=== PATIENT | female | born 1990 | race Caucasian/White ===

== ENCOUNTER → 2017-07-04 23:04 | Observation (INO) ==
[2017-07-04 18:42] LABS: Bilirubin,Urine Negative (Negative); Blood,Urine Small (Negative); Clarity,Urine Cloudy (Clear); Color,Urine Yellow (Yellow); Glucose,Urine (UA) Normal (Normal); Ketones,Urine Negative (Negative); Leukocyte Esterase,Urine Negative (Negative); Nitrite,Urine Negative (Negative); Protein,Urine Negative (Neg-Trace); Specific Gravity,Urine 1.022 (1.010-1.025); Urobilinogen,Urine Normal (Normal)
[2017-07-04 18:44] LABS: Bacteria,Urine None Seen per hpf (None-Few); Hyaline Casts,Urine None Seen per lpf (None-Few); RBC,Urine 0-3 per hpf (0-3); Squamous Epithelial Cell,Urine Many per lpf (None-Few); WBC,Urine 0-3 per hpf (0-3)
[2017-07-04 19:08] LABS: Amphetamine Screen,Urine Negative ng/mL (Cutoff=1000); Barbiturate Screen,Urine Negative ng/mL (Cutoff=200); Benzodiazepines Screen,Urine Negative ng/mL (Cutoff=200); Cannabinoid Screen,Urine Negative ng/mL (Cutoff = 50); Cocaine Screen,Urine Negative ng/mL (Cutoff= 300); Opiate Screen,Urine Negative ng/mL (Cutoff=300); Phencyclidine Screen,Urine Negative ng/mL (Cutoff=25)
[2017-07-04 19:18] LABS: Basophils % 0.2 %; Eosinophils # 0.1 K/mcL (0.0-0.6); Eosinophils % 0.8 %; Hemoglobin 12.5 g/dL (11.5-15.4); Lymphocytes # 3.5 K/mcL (0.6-4.6); Lymphocytes % 21.4 %; Mean Corpuscular HGB Conc 35.7 g/dL (31.6-35.5); Mean Corpuscular Hemoglobin 30.3 pg (28.0-33.3); Mean Corpuscular Volume 84.7 fL (83.0-100.0); Mean Platelet Volume 10.5 fL (9.4-12.4); Monocytes # 1.1 K/mcL (0.0-1.3); Monocytes % 6.5 %; Neutrophils # 11.6 K/mcL (1.6-8.9); Platelet Count 224 K/mcL (140-400); Red Blood Count 4.13 M/mcL (3.82-4.97); Segmented Neutrophils % 70.1 %
--- NOTE | 2017-07-04 22:44 | Discharge Summary ---
Date of Encounter: 07/04/17 Time of Encounter: 22:44 - Discharge Diagnosis (1) 20 weeks gestation of Priority: Primary Status: Acute Comments: admitted for observation FHR 130 bpm per doppler (2) Lower abdominal pain Priority: Secondary Status: Acute Comments: negative UA no contractions (3) Low back pain Priority: Secondary Status: Acute Comments: bilateral lower back pain renal ultrasound negative for stones Mild to moderate hydronephrosis noted on right side patient given [place] 5/325mg x1 for pain Qualifiers: Chronicity: acute Back pain laterality: bilateral Sciatica presence: without sciatica Qualified Code(s): M54.5 - Low back pain - Discharge Medications Home Medications: Vit/Iron Fumarate/FA [ Tablet] 1 each PO DAILY #30 tablet 03/13 [Rx] FLUoxetine HCl [PROzac] 20 mg PO DAILY 07/04/17 [History] Terconazole [Terazol 3] 1 appl VG DAILY 07/04/17 [History] Allergies/Adverse Reactions: 3 Allergy/AdvReac Type Severity Reaction Status Date / Time nitrofurantoin Allergy Rash Verified 07/04/17 18:16 [From Macrobid] Data Procedures and tests throughout hospitalization: Laboratory Tests 07/04/17 07/04/17 07/04/17 18:27 18:27 18:58 WBC 16.5 H RBC 4.13 Hgb 12.5 Hct 35.0 L MCV 84.7 MCH 30.3 MCHC 35.7 H RDW 13.0 Plt Count 224 MPV 10.5 Immature Gran % 1.0 Seg Neutrophils % 70.1 Lymphocytes % 21.4 Monocytes % 6.5 Eosinophils % 0.8 Basophils % 0.2 Neutrophils # 11.6 H Lymphocytes # 3.5 Monocytes # 1.1 Eosinophils # 0.1 Basophils # 0.0 Urine Color Yellow Urine Clarity Cloudy A Urine pH 6.0 Ur Specific [place] 1.022 Urine Protein Negative Urine Glucose (UA) Normal Urine Ketones Negative Urine Blood Small H Urine Nitrite Negative Urine Bilirubin Negative Urine Urobilinogen Normal Ur Leukocyte Esterase Negative Urine Microscopic RBC 0-3 Urine Microscopic WBC 0-3 Ur Squamous Epith Cells Many H Urine Bacteria None Seen Hyaline Casts None Seen Ur Culture Indicated? NO Urine Opiates Screen Negative Ur Barbiturates Screen Negative Ur Phencyclidine Scrn Negative Ur Amphetamines Screen Negative U Benzodiazepines Scrn Negative Urine Cocaine Screen Negative U Marijuana (THC) Screen Negative Labs on day of discharge: Labs from last 24 hours 07/04/17 07/04/17 07/04/17 18:58 18:27 18:27 WBC 16.5 H RBC 4.13 Hgb 12.5 Hct 35.0 L MCV 84.7 MCH 30.3 MCHC 35.7 H RDW 13.0 Plt Count 224 MPV 10.5 Immature Gran % 1.0 Seg Neutrophils % 70.1 Lymphocytes % 21.4 Monocytes % 6.5 Eosinophils % 0.8 Basophils % 0.2 Neutrophils # 11.6 H Lymphocytes # 3.5 Monocytes # 1.1 Eosinophils # 0.1 Basophils # 0.0 Urine Color Yellow Urine Clarity Cloudy A Urine pH 6.0 Ur Specific [place] 1.022 Urine Protein Negative Urine Glucose (UA) Normal Urine Ketones Negative Urine Blood Small H Urine Nitrite Negative Urine Bilirubin Negative Urine Urobilinogen Normal Ur Leukocyte Esterase Negative Urine Microscopic RBC 0-3 Urine Microscopic WBC 0-3 Ur Squamous Epith Cells Many H Urine Bacteria None Seen Hyaline Casts None Seen Ur Culture Indicated? NO Urine Opiates Screen Negative Ur Barbiturates Screen Negative Ur Phencyclidine Scrn Negative Ur Amphetamines Screen Negative U Benzodiazepines Scrn Negative Urine Cocaine Screen Negative U Marijuana (THC) Screen Negative - Impressions ITS Impressions Retroperitoneum Ultrasound 07/04/17 19:30 IMPRESSION: Mild to moderate right hydronephrosis. No shadowing renal pelvic stones. 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 Patient reports +FM, denies contractions, LOF or VB. Time Attestation: Total time spent providing and/or coordinating discharge services: Time Spent: Less than 30 minutes Exam - Constitutional General appearance IM: A&O X 3, pleasant, answers questions appropriately - Respiratory Respiratory exam: Present: CTAB - Cardiovascular Cardiovascular exam IM: Present: RRR, +S1, +S2 - Additional comments: tenderness over bladder - Other Additional findings: bilateral low back tenderness.
[~2017-07-04 23:04] MED LIST: *HR* HYDROcodone/Acet 5/325 mg TABLET PO ONE; Ringers Solution, Lactated 1,000 ML IVC SCH
== END | disposition home or self-care (01) ==
LOC: 1NENULAB
PROVIDERS: ADMIT Obstetrics & Gynecology; ATTEND Obstetrics & Gynecology

== ENCOUNTER 2017-11-09 06:00 | Inpatient (IN) ==
[2017-11-09] MEDS ORDERED: Famotidine 20 MG/2 ML VIAL IVP PRN (06:50)
[2017-11-09] MEDS ORDERED: Naloxone 0.4 MG/ML INJ IVP PRN (06:50)
[2017-11-09] MEDS ORDERED: Ondansetron 4 MG/2 ML VIAL IVP PRN (06:50)
[2017-11-09] MEDS ORDERED: Metoclopramide 10 MG/2 ML VIAL IVP PRN (06:50)
[2017-11-09] MEDS ORDERED: Ringers Solution, Lactated 1,000 ML IVC SCH (07:00)
[2017-11-09 07:49] LABS: Amphetamine Screen,Urine Negative ng/mL (Cutoff=1000); Barbiturate Screen,Urine Negative ng/mL (Cutoff=200); Benzodiazepines Screen,Urine Negative ng/mL (Cutoff=200); Cannabinoid Screen,Urine Negative ng/mL (Cutoff = 50); Cocaine Screen,Urine Negative ng/mL (Cutoff= 300); Opiate Screen,Urine Negative ng/mL (Cutoff=300); Phencyclidine Screen,Urine Negative ng/mL (Cutoff=25)
[2017-11-09 07:59] LABS: Hematocrit 33.5 % (35.3-44.9); Hemoglobin 11.6 g/dL (11.5-15.4); Lymphocytes % 19.1 %; Mean Corpuscular HGB Conc 34.6 g/dL (31.6-35.5); Mean Corpuscular Hemoglobin 27.7 pg (28.0-33.3); Mean Platelet Volume 9.9 fL (9.4-12.4); Platelet Count 260 K/mcL (140-400); Red Blood Count 4.19 M/mcL (3.82-4.97); Red Cell Distribution Width 13.5 % (11.5-14.5); Segmented Neutrophils % 71.8 %
[2017-11-09 08:00] LABS: Basophils % 0.3 %; Eosinophils # 0.1 K/mcL (0.0-0.6); Eosinophils % 0.6 %; Lymphocytes # 2.8 K/mcL (0.6-4.6); Monocytes # 1.1 K/mcL (0.0-1.3); Monocytes % 7.2 %; Neutrophils # 10.5 K/mcL (1.6-8.9)
[2017-11-09] MEDS ORDERED: miSOPROStol 100 MCG TABLET PO SCH (08:00)
[2017-11-09] MEDS ORDERED: miSOPROStol 25 MCG TABLET VG SCH (08:00)
--- NOTE | 2017-11-09 08:56 | OB/GYN History & Physical ---
Date of Encounter: 11/09/17 Time of Encounter: 08:53 Assessment and Plan (1) 39 weeks gestation of Current visit: Yes Status: Acute scheduled elective induction of labor for Term with favorable cervix per patient request. Cytotec 50mcg PO x1 Patient may have Nubain or epidural if desires for pain management. History of Present Illness Chief complaint: Patient scheduled for elective IOL HPI: Ms. Otoole is a 26 year old female @ 39w1d presents to labor and delivery for scheduled induction of labor for Term with favorable cervix. Patient reports +FM and contractions. Patient denies LOF or VB. Patient has a current minor score of 11. Blood type: A+ Rubella: Immune Hep B: Nonreactive GBS: Negative Past Med Surg Social Fam HX - Past Medical History Source: patient Medical history: no medical history Psychiatric history: depression - Past Surgical History Surgical History: cholecystectomy - Social History Smoking Status: Current some day smoker Smokeless Tobacco Status: No Alcohol use: none Drug use: none Occupational status: employed Current living situation: Home - Independent Activity Level: Independent ambulation Recent Out of Country Travel Within the Last 8 Weeks: No Exposure or Possible Exposure to Illness During Travel: No - Family History Mother Adopted: No Family Member Ethnicity: Non- Living Status: Still Living Hx Family Cardiac Disorders: No Hx Family Respiratory Disorders: No Hx Family Cancer: No Hx Family GI Disorders: No Hx Family Genitourinary Disorders: No Hx Family Endocrine Disorder: Yes Hx Family Musculoskeletal Disorders: No Hx Family Neuromuscular Disorders: No Hx Family Neurologic Disorders: No Hx Family HEENT Disorders: No Hx Family Autoimmune Disorders: No Hx Family Reproductive Disorders: No Hx Family Psychosocial Disorders: No Hx Family Medical Disorders: Yes (DVT) Obstetrical History - Pregnancies : 4 Para: 2 Term: 2 : 0 Ab's: 1 Livin Medications and Allergies 3 Allergy/AdvReac Type Severity Reaction Status Date / Time nitrofurantoin Allergy Hives Verified 09/23/17 14:58 [From Macrobid] Review of System OB - Constitutional Constitutional ROS IM: no fever(s), no headache(s) - Cardiovascular Cardiovascular: no chest pain, no edema, no lightheadedness, no palpitations, no syncope - Respiratory Respiratory: no cough - Gastrointestinal Gastrointestinal: no abdominal pain, no constipation, no cramping, no diarrhea, no heartburn, no vomiting - Genitourinary Genitourinary: no abnormal vaginal bleeding, no difficulty urinating, no dysuria , no flank pain, no urinary frequency, no urinary urgency, no vaginal discharge , no vaginal odor, no vaginal pruritis Exam - Constitutional Constitutional: well developed, well nourished, no acute distress, average body habitus - HEENT HEENT: Normocephaly, Mucus Membranes Moist - Neck Neck exam: full ROM, supple - Lungs Respiratory exam: CTAB - Cardiovascular Cardiovascular exam: RRR, +S1, +S2 - Abdomen Abdomen: Present: bowel sounds normal, gravid, non tender - Extremities Extremities exam: full ROM, normal capillary refill, normal inspection Deep Tendon Reflex Grade: 2+ Normal - Cervix Dilation: 3 (3.5 per RN) Effacement: 80 Station: -1 - Uterus Uterus exam: Present: normal size, normal contour - Anus/Rectum Anus/Rectum: Present: normal perianal skin (FHR 130 bpm moderate variability + 15x15 accels no decels noted. Contractions irregular) Results Result Diagrams: 11/09/17 07:23 Abnormal lab results WBC 14.7 K/mcL (4.3-11.1) H 11/09/17 07:23 Hct 33.5 % (35.3-44.9) L 11/09/17 07:23 MCV 80.0 fL (83.0-100.0) L 11/09/17 07:23 MCH 27.7 pg (28.0-33.3) L 11/09/17 07:23 Neutrophils # 10.5 K/mcL (1.6-8.9) H 11/09/17 07:23 All other labs normal. - VTE Reasons for not Prescribing Prophylaxis: Treatment not Indicated - Low risk for VTE
--- NOTE | 2017-11-09 10:14 | OB Labor Progress Note ---
Date of Encounter: 11/09/17 Time of Encounter: 10:12 Labor Progress Note - Subjective Subjective: Patient resting in bed. Discussed POC with patient. Patient denies any questions or concerns. - Cervix Cervix: 4/80/-1 - Heart Tones Heart Tones: 145 bpm moderate variability +15x15 accels no decels noted. Cat. 1 tracing. - Clearwater Clearwater: 2-3 min apart - Interventions Interventions: SVE, AROM moderate amount of clear fluid. Patient tolerated well. - Plan Plan: Continue labor management. Patient may have Nubain or epidural if desires for pain medication.
[2017-11-09] MEDS ORDERED: *HR* Nalbuphine 20 MG/ML AMPUL IVP PRN (11:02)
[2017-11-09] MEDS ORDERED: *HR* Nalbuphine 20 MG/ML AMPUL ONE (11:04)
[2017-11-09] MEDS ORDERED: Epidural Premix (fent/bupiv) 110 ML EP ONE (12:27)
[2017-11-09] MEDS ORDERED: Epidural Premix (fent/bupiv) 110 ML EP SCH (12:30)
--- NOTE | 2017-11-09 14:17 | Anesthesia Evaluation PreOp ---
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 HX Other Medical History: Denies Any Significant HX Anesthesia History: No Prior Anesthetic Complications : Yes Alcohol Use: none Drug use: none Medications and Allergies 3 Allergy/AdvReac Type Severity Reaction Status Date / Time nitrofurantoin Allergy Hives Verified 09/23/17 14:58 [From Macrobid] - Meds/Allergy Pre-op Review Medications Reviewed: Yes Allergies Reviewed: Yes Beta Blockers on Current Med List: No Anesthesia Results - Labs 11/09/17 07:23 Anesthesia Exam - HEENT Pupil (Motor): Pupils equal Mallampati: I Teeth: Normal Oral Opening: Greater than 3 - VEGETABLE HARVEST WORKER LOC: Oriented VEGETABLE HARVEST WORKER Motor: Normal RUE, Normal LUE, Normal RLE, Normal LLE, Normal Face VEGETABLE HARVEST WORKER Sensory: Normal: RUE, LUE, RLE, LLE, Face - Cardiac Rhythm: Regular Murmur: None JVD: No Carotid Bruit: No - Pulmonary Breath Sounds: bilateral Clear Respiratory Effort: Symmetrical Anesthesia Assess/Plan ASA Score: 1 Modified Raegan Scale for Level of Consciousness: Cooperative, oriented, and tranquil Anesthetic Plan: Regional Autologous Blood: No Monitoring Plan: Standard Monitors
--- NOTE | 2017-11-09 14:19 | Anesthesia Procedures ---
Date of Encounter: 11/09/17 Time of Encounter: 12:40 Procedures: Anesthesia - Epidural/Spinal Patient ID/Chart reviewed: Yes Patient examined: Yes OB Eval: Gestational age: 39.1 OB Eval: : 4 OB Eval: Hx Para: 2 OB Eval: Dilated at (cm): 4 OB Eval: Contractions: Non-stressed pattern Consent Obtained: Yes Supplemental Oxygen: None/Room Air Site Prep: Aseptic Technique, Sterile prep and drape, Povidone-Iodine 1% Patient position: upright Amount of Local Anesthetic used: 3 Touhy Needle Gauge: 18 Touhy Needle Depth (cm): 7 Catheter Depth at Skin (cm): 12 Test Dose (1.5% Lido + Epi): Volume given (mls): 3 Test Dose Result: Negative Catheter Secured in Place: Tegaderm, Tape Interspace Used: L4-L5 Loss of Resistance (VALARIE): Yes Blood: No CSF: No Paresthesia: No Vitals + FHT's: stable throughout see nursing notes
[2017-11-09] MEDS ORDERED: Lidocaine -MPF 1% 2 ML VIAL ID ONE (14:51)
[2017-11-09] MEDS ORDERED: Oxytocin 20 units/ LR 1000 mL 20 UNIT/1,000 ML BAG IVC SCH ×2 (15:00→19:42)
[2017-11-09] MEDS ORDERED: Oxytocin 20 units/ LR 1000 mL 20 UNIT/1,000 ML BAG IVC ONE (15:03)
[2017-11-09] MEDS ORDERED: *HR* Ropivacaine/PF 0.2% 20 ML VIAL ONE (15:25)
[2017-11-09] MEDS ORDERED: *HR* FentaNYL (PF) 100 MCG/2 ML VIAL ONE (15:26)
--- NOTE | 2017-11-09 17:53 | OB/GYN Procedure Note ---
Delivery - Delivery Date: 11/09/17 Provider: Jocelyn Hernandez Intrapartum events: none Delivery induction: AROM, oxytocin, misoprostol Delivery monitor: external FHT, external uterine Anesthesia: epidural Estimated Blood Loss: 300 - Infant (s) A Infant Delivery Date: 11/09/17 Delivery Time: 17:12 Presentation: vertex Position: OSITO Route of delivery: Gender: Female Viability: Viable Pounds: 7 Ounces: 7 Weight Gram: 3380 kg at 1 minute: 9 at 5 mins: 9 Shoulder Dystocia: not encountered Specimens collected: cord blood Placenta: spontaneous, uterine exploration Cord: 3 umbilical vessels - Repair Episiotomy: none Laceration Description: None - Complications Delivery complications: none - Disposition Mom disposition: stable in LDR disposition: stable in LDR - Comments Comments: Called to LDR, patient complete and feeling pressure. Patient placed in stirrups and prepped for vaginal delivery. Under maternal effort patient spontaneously delivered a viable female over and intact perineum. was placed on maternal abdomen. Cord was clamped and cut after pulsation ceased. Placenta delivered spontaneously and intact. Both mother and stable in LDR for 2 hour recovery.
[2017-11-09] MEDS ORDERED: Measles/Mumps/Rubella Vacc 0.5 ML VIAL SQ PRN (19:42)
[2017-11-09] MEDS ORDERED: Benzocaine/Menthol 56 GM AEROSOL SPRAY TP PRN (19:42)
[2017-11-09] MEDS ORDERED: Lanolin 7 G OINT...G. TP PRN (19:42)
[2017-11-09] MEDS ORDERED: Acetaminophen 325 MG TABLET PO PRN (19:42)
[2017-11-09] MEDS: Ibuprofen 600 MG TABLET PO PRN (21:02)
[2017-11-10] MEDS: Ibuprofen 600 MG TABLET PO PRN ×3 (05:30→18:05)
[2017-11-10] MEDS ORDERED: Prenatal Vit/FA 1 EACH TABLET PO SCH (09:00)
--- NOTE | 2017-11-10 09:21 | Discharge Summary ---
Date of Encounter: 11/10/17 Time of Encounter: 09:20 - Discharge Diagnosis (1) Spontaneous vaginal delivery Priority: Primary Status: Acute Comments: S/P vaginal delivery day 2 Pain is well controlled Lochia is light and without clots Tolerating regular diet Voiding without difficulty VSS Patient has not yet passed stool but is passing urine without difficulty. with some difficulty. She will also be sent home with a breast pump. Patient agrees to discharge home today Plan is to discharge home today and follow-up outpatient OBGYN and PCP (2) Contraception Priority: Secondary Status: Acute Comments: Patient will receive nexplanon at outpatient follow-up Qualifiers: Contraceptive encounter type: unspecified Qualified Code(s): Z30.9 - Encounter for contraceptive management, unspecified - Discharge Medications Prescriptions: Ibuprofen [Motrin] 600 mg PO Q8HR PRN #30 tab PRN Reason: Mild Pain Breast Pump [BREAST PUMP] 1 each .ROUTE AD #1 each Docusate [Colace] 100 mg PO BID #30 capsule Home Medications: Breast Pump [BREAST PUMP] 1 each .ROUTE AD #1 each 11/10/17 [Rx] Docusate [Colace] 100 mg PO BID #30 capsule 11/10/17 [Rx] Ibuprofen [Motrin] 600 mg PO Q8HR PRN #30 tab 11/10/17 [Rx] Allergies/Adverse Reactions: 3 Allergy/AdvReac Type Severity Reaction Status Date / Time nitrofurantoin Allergy Hives Verified 09/23/17 14:58 [From Macrobid] Data Procedures and tests throughout hospitalization: Laboratory Tests 11/09/17 11/09/17 07:23 07:23 WBC 14.7 H RBC 4.19 Hgb 11.6 Hct 33.5 L MCV 80.0 L MCH 27.7 L MCHC 34.6 RDW 13.5 Plt Count 260 MPV 9.9 Immature Gran % 1.0 Seg Neutrophils % 71.8 Lymphocytes % 19.1 Monocytes % 7.2 Eosinophils % 0.6 Basophils % 0.3 Neutrophils # 10.5 H Lymphocytes # 2.8 Monocytes # 1.1 Eosinophils # 0.1 Basophils # 0.0 Urine Opiates Screen Negative Ur Barbiturates Screen Negative Ur Phencyclidine Scrn Negative Ur Amphetamines Screen Negative U Benzodiazepines Scrn Negative Urine Cocaine Screen Negative U Marijuana (THC) Screen Negative Date of admission: 11/09/17 06:12 Primary care physician: Anupama Cottrell CNP Consults: 11/09/17 19:42 Consult to Logging Equipment Mechanic [CONS] Routine Comment: Vaginal delivery, consult needed Discharging clinician: Francisco Landry Anticipated date of discharge: 11/10/17 - Patient Status Disposition: Home, Self-Care Condition: Good Functional capacity at discharge: independent ambulation Overall status at discharge: patient is back to baseline - Discharge Instructions Follow Up With: Anupama Cottrell CNP [Primary Care Provider] - - Diet and Activity Diet: advance to your usual diet Hospital Course Reason for admission: induction of labor Delivery: Episiotomy: none Other procedures: none complications: none Discharge diagnosis: IUP at term delivered baby: female Time Attestation: Total time spent providing and/or coordinating discharge services: Time Spent: Greater than 30 minutes Exam - Constitutional Vitals: Temp Pulse Resp BP Pulse Ox 97.8 F 64 16 107/74 98 11/10/17 05:15 11/10/17 05:15 11/10/17 05:15 11/10/17 05:15 11/10/17 05:15 General appearance IM: A&O X 3 - Respiratory Respiratory exam: Present: CTAB - Cardiovascular Cardiovascular exam IM: Present: RRR, +S1, +S2 - GI/Abdominal GI/Abdominal exam IM: diminished bowel sounds - Uterus Position: 1 Finger Below Umbilicus - Extremities Exam Extremities exam IM: Present: full ROM, radial pulses palpable and symmetrical. Absent: calf tenderness - Neurological Exam Neurological exam: CN II-XII intact, oriented X3 - Psychiatric Additional comments: Patient is in good mood - Attending Attestation I examined this patient and my medical decision-making was reviewed with the Resident Physician. I agree with the documented findings, disposition and treatment plan as described except to the extent set forth below. Patient requests to have Nexplanon placed prior to discharge; Will place. Luis Pickens CNM
[2017-11-10] MEDS ORDERED: Lidocaine/EPI 1:100k 1% 20 ML VIAL INFILT ONE (09:27)
[2017-11-10] MEDS ORDERED: Etonogestrel 68 MG IMPLANT IL ONE (09:27)
[2017-11-10 10:06] VITALS: BP 111/69
--- NOTE | 2017-11-10 12:18 | Event Note ---
Date of Encounter: 11/10/17 Time of Encounter: 12:16 Informed consent was obtained and time out performed. Patient was placed in the supine position with arm in the appropriate position. Betadine was used to prep the arm in a sterile fashion. 1% lidocaine with epinephrine was used to anesthetize. The implant was inserted in the subcutaneous tissue to the appropriate length then the Nexplanon was released. Both myself and patient can palpate the neo without difficulty. Steri-Strips and a pressure dressing was applied. Patient tolerated the procedure well. She was instructed on post care and when Nexplanon is effective for contraception. Patient denies any additional questions. She will be discharged home today.
== END 2017-11-10 20:00 | disposition home or self-care (01) | DRG 775 ==
LOC: 1NENULAB 06:12 → 1NENUOBS 19:52
PROVIDERS: ADMIT Obstetrics & Gynecology; ATTEND Obstetrics & Gynecology

== ENCOUNTER 2018-02-16 12:05 | Observation (INO) ==
[2018-02-16] MEDS ORDERED: *HR* HYDROcodone/Acet 7.5/325 mg TABLET PO ONE (13:22)
--- NOTE | 2018-02-16 13:59 | Emergency Department Note ---
Disposition Clinical Impression: Hydronephrosis, right, Hydroureter on right, Ureteral stone Disposition: Admitted As Inpatient Condition: Good Referrals: NONE,PCP [Primary Care Provider] - Forms: ED Satisfaction Letter Time of Disposition: 15:53 Back Pain HPI - General Chief Complaint: ED Back Pain/Injury Stated Complaint: neck/back pain Time Seen by Provider: 02/16/18 12:25 Source: patient Mode of arrival: ambulatory Limitations: no limitations Nursing Notes Reviewed: Yes Vital Signs Reviewed: Yes - History of Present Illness HPI Narrative: 27 yo F here for low back pain. Patient states she was injured over 2 weeks ago work after patient fell on her. 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 She was seen at urgent care 2 as well as her chiropractor 2 as well as the ER 2 for the same complaint. She is complaining of low back pain that radiates down her right leg. She states she had a history of L3-L4 disc problems prior to this injury. She denies abdominal pain. No fevers. No other complaints other than she describes some upper back stiffness and some pain that shoots up into her neck. She just wanted some answers today as to why she was having this persistent pain. She was been taking NSAIDs as well as tramadol and steroids. Nothing has helped. - Related Data Previous Rx's Medication Instructions Recorded Breast Pump [BREAST PUMP] 1 each .ROUTE AD #1 each 11/10/17 Docusate [Colace] 100 mg PO BID #30 capsule 11/10/17 Ibuprofen [Motrin] 600 mg PO Q8HR PRN #30 tab 11/10/17 Ibuprofen [Motrin] 600 mg PO Q8HR PRN #20 tab 02/04/18 Tramadol HCl [Ultram] 2 tab PO TID PRN 3 Days #15 tab 02/04/18 Allergies Allergy/AdvReac Type Severity Reaction Status Date / Time nitrofurantoin Allergy Hives Verified 02/16/18 12:08 [From Macrobid] Review of Systems: Gen.: No fevers or chills or new weakness Eyes: Denies double vision or any vision changes Ears: Denies any otalgia Pharynx: Denies sore throat CV: Denies chest pain. Denies palpitations Respiratory: Denies any cough or sputum production. No shortness of breath. GI: Denies any nausea, vomiting, diarrhea, constipation. Denies abdominal pain Neuro: Denies any headache. No problems with ambulation. No numbness. Skin: Denies any rashes or abrasions Psych: Denies any depression or suicidal or homicidal ideation Musculoskeletal: Denies any arthralgias or myalgias Past Medical History - Past Medical History Medical history: Reports: no medical history Surgical history: Reports: cholecystectomy Psychiatric history: Reports: depression - Social History Smoking Status: Current every day smoker Smokeless Tobacco Status: No Alcohol use: Reports: none Drug use: Reports: none Physical Exam - General General appearance: alert, in no apparent distress - Head Head exam: atraumatic, normocephalic - Eye Eye exam: Present: normal appearance - Chest Chest inspection: Present: normal inspection - Cardiovascular Cardiovascular exam: Present: regular rate, normal rhythm - Abdominal Exam Abdominal exam: Present: soft, Non-Tender - Back Exam Back 1 view image: 1 - +low back pain on palpation - Neurological Exam Neurological exam: Present: alert, oriented X3 - Psychiatric Psychiatric exam: Present: normal affect, normal mood - Skin Skin exam: Present: warm, dry, intact Course Vital Signs Temperature 97.9 F 02/16/18 12:06 Pulse Rate 76 02/16/18 12:06 Respiratory Rate 18 02/16/18 12:06 Blood Pressure 141/94 02/16/18 12:06 O2 Sat by Pulse Oximetry 99 02/16/18 12:06 Temperature 97.9 F 02/16/18 12:26 Pulse Rate 76 02/16/18 12:26 Respiratory Rate 18 02/16/18 12:26 Blood Pressure 141/94 02/16/18 12:26 O2 Sat by Pulse Oximetry 99 02/16/18 12:26 Oxygen Delivery Oxygen Delivery Room Air Back Pain/Injury - MDM Narrative Medical decision making narrative: Patient's CT of the lumbar spine indicated a right hydronephrosis and hydroureter. We did do a dedicated CT abdomen and pelvis which then confirmed a very large distal ureteral stone causing this hydronephrosis and hydroureter. Patient will be admitted to the urologist's service, Dr. Milian. I did speak with him from the ER. She does have a white count of 19,000 which I feels likely a combination of the steroid use as well as her pain. Her symptoms have been present for 2 weeks and she felt like she could not get answers as to why she was having this discomfort. Seemed to happen after she got injured at work. However I think is coincidental that this happened at the same time. We will admit the patient for stone retraction. - Medical Records Medical records reviewed: Yes I reviewed the patient's medical records. - Lab Data Lab results reviewed: Yes I reviewed the patient's lab results. Result diagrams: 02/16/18 14:40 02/16/18 14:40 Lab Results 02/16/18 02/16/18 02/16/18 Range/Units 14:40 14:40 14:54 WBC 19.9 H (4.3-11.1) K/mcL RBC 4.89 (3.82-4.97) M/mcL Hgb 13.3 (11.5-15.4) g/dL Hct 38.9 (35.3-44.9) % MCV 79.6 L (83.0-100.0) fL MCH 27.2 L (28.0-33.3) pg MCHC 34.2 (31.6-35.5) g/dL RDW 14.7 H (11.5-14.5) % Plt Count 245 (140-400) K/mcL MPV 11.4 (9.4-12.4) fL Immature Gran % 0.9 (0-4) % Seg Neutrophils % 69.6 % Lymphocytes % 23.5 % Monocytes % 5.0 % Eosinophils % 0.6 % Basophils % 0.4 % Neutrophils # 13.8 H (1.6-8.9) K/mcL Lymphocytes # 4.7 H (0.6-4.6) K/mcL Monocytes # 1.0 (0.0-1.3) K/mcL Eosinophils # 0.1 (0.0-0.6) K/mcL Basophils # 0.1 (0.0-0.2) K/mcL Sodium 138 (136-145) mEq/L Potassium 3.7 (3.5-5.1) mEq/L Chloride 108 H (98-107) mEq/L Carbon Dioxide 21 L (23-29) mEq/L BUN 11 (6-20) mg/dL Creatinine 0.69 (0.60-1.20) mg/dL Est GFR ( Amer) > 60 (> 60) Est GFR (Non-Af Amer) > 60 (> 60) BUN/Creatinine Ratio 16 (6-26) Glucose 119 H (70-105) mg/dL Calculated Osmolality 287 (280-300) Calcium 9.3 (8.6-10.3) mg/dL Urine Color Yellow (Yellow) Urine Clarity Clear (Clear) Urine pH 6.5 (5.0-8.0) pH Units Ur Specific [place] 1.015 (1.010-1.025) Urine Protein Negative (Neg-Trace) mg/dL Urine Glucose (UA) Normal (Normal) mg/dL Urine Ketones Negative (Negative) mg/dL Urine Blood Negative (Negative) Urine Nitrite Negative (Negative) Urine Bilirubin Negative (Negative) Urine Urobilinogen Normal (Normal) mg/dL Ur Leukocyte Esterase Negative (Negative) Ur Culture Indicated? NO (NO) - Radiology Data Radiology results reviewed: Yes I reviewed the patient's radiology results.
[2018-02-16 15:05] LABS: Basophils # 0.1 K/mcL (0.0-0.2); Basophils % 0.4 %; Eosinophils # 0.1 K/mcL (0.0-0.6); Eosinophils % 0.6 %; Hematocrit 38.9 % (35.3-44.9); Hemoglobin 13.3 g/dL (11.5-15.4); Immature Granulocytes % 0.9 % (0-4); Lymphocytes # 4.7 K/mcL (0.6-4.6); Lymphocytes % 23.5 %; Mean Corpuscular HGB Conc 34.2 g/dL (31.6-35.5); Mean Corpuscular Hemoglobin 27.2 pg (28.0-33.3); Mean Corpuscular Volume 79.6 fL (83.0-100.0); Mean Platelet Volume 11.4 fL (9.4-12.4); Neutrophils # 13.8 K/mcL (1.6-8.9); Platelet Count 245 K/mcL (140-400); Red Blood Count 4.89 M/mcL (3.82-4.97); Red Cell Distribution Width 14.7 % (11.5-14.5); Segmented Neutrophils % 69.6 %
[2018-02-16 15:09] LABS: Bilirubin,Urine Negative (Negative); Blood,Urine Negative (Negative); Clarity,Urine Clear (Clear); Color,Urine Yellow (Yellow); Glucose,Urine (UA) Normal (Normal); Ketones,Urine Negative (Negative); Leukocyte Esterase,Urine Negative (Negative); Nitrite,Urine Negative (Negative); PH,Urine 6.5 pH Units (5.0-8.0); Protein,Urine Negative (Neg-Trace); Specific Gravity,Urine 1.015 (1.010-1.025); Urobilinogen,Urine Normal (Normal)
[2018-02-16 15:13] LABS: BUN/Creatinine Ratio 16 (6-26); Blood Urea Nitrogen 11 mg/dL (6-20); Calcium 9.3 mg/dL (8.6-10.3); Carbon Dioxide 21 mEq/L (23-29); Chloride 108 mEq/L (98-107); Glucose 119 mg/dL (70-105); Osmolality,Calculated 287 (280-300); Potassium 3.7 mEq/L (3.5-5.1); Sodium 138 mEq/L (136-145); eGFR For African Americans > 60 (> 60); eGFR For Non-African Americans > 60 (> 60)
[2018-02-16] MEDS ORDERED: Naloxone 0.4 MG/ML INJ IVP PRN (16:27)
[2018-02-16] MEDS ORDERED: *HR* Belladonna Alkaloids/Opium 30 MG RECTAL SUPPOSITORY RC PRN (16:27)
[2018-02-16] MEDS ORDERED: Ondansetron 4 MG/2 ML VIAL IVP PRN (16:27)
[2018-02-16] MEDS ORDERED: *HR* HYDROcodone/Acet 5/325 mg TABLET PO PRN (16:27)
[2018-02-16] MEDS ORDERED: Ketorolac 15 MG/ML VIAL IVP PRN (16:27)
--- NOTE | 2018-02-16 16:33 | Urology History & Physical ---
Date of Encounter: 02/16/18 Time of Encounter: 16:30 Assessment and Plan (1) Leukocytosis Current Visit: Yes Status: Acute likely from recent steroids but still some concern bc of stone. Qualifiers: Leukocytosis type: unspecified Qualified Code(s): D72.829 - Elevated white blood cell count, unspecified (2) Hydroureter on right Current Visit: Yes Status: Acute from UVJ stone (3) Ureteral stone Current Visit: Yes Status: Acute trail of passage option discussed but bc of severity of symptoms elects to proceed with a stone extraction History of Present Illness Chief complaint: flank pain. HPI: Ms. Otoole is a 27 year old female 2 week hx of severe flank and black pain. steroids ineffective. presented to ER. CT scan revealed 10 mm right UVJ stone. admitted for pain control and concern regarding leukocytosis. Past Med Surg Social Fam HX - Past Medical History Medical history: no medical history Psychiatric history: depression - Past Surgical History Surgical History: cholecystectomy Additional surgical history: bone spur - Social History Smoking Status: Current every day smoker Smokeless Tobacco Status: No Alcohol use: none Drug use: none - Family History Mother Adopted: No Family Member Ethnicity: Non- Living Status: Still Living Hx Family Cardiac Disorders: No Hx Family Respiratory Disorders: No Hx Family Cancer: No Hx Family GI Disorders: No Hx Family Endocrine Disorder: Yes Hx Family Neuromuscular Disorders: No Hx Family Neurologic Disorders: No Hx Family HEENT Disorders: No Hx Family Autoimmune Disorders: No Medications and Allergies Etonogestrel [Nexplanon] 68 mg ID ONCE 02/16/18 [History] predniSONE [PredniSONE] 20 mg PO BID 02/16/18 [History] 3 Allergy/AdvReac Type Severity Reaction Status Date / Time nitrofurantoin Allergy Hives Verified 02/16/18 12:08 [From Macrobid] Review of Systems - Constitutional no chills, no fever(s), no malaise - EENT Nose, mouth and throat: no dizziness - Cardiovascular no chest pain - Respiratory no cough - Gastrointestinal abdominal pain, nausea - Musculoskeletal back pain - Integumentary no erythema - Neurological no confusion - Psychiatric no anxiety - Hematologic/Lymphatic no easy bleeding - Allergic/Immunologic no throat swelling Exam Initial Vital Signs Temp Pulse Resp BP Pulse Ox 97.9 F 76 18 141/94 99 02/16/18 12:06 02/16/18 12:06 02/16/18 12:06 02/16/18 12:06 02/16/18 12:06 - General physical appearance Present: well developed, no distress - Eyes Present: PERRL - ENT Present: normal nares - Neck Present: no masses - Respiratory Present: normal respiratory effort - Cardiovascular Cardiovascular exam IM: RRR - Abdomen Abdomen: Present: soft - Integumentary Present: no rash - Neurologic Present: normal coordination. Absent: disoriented, confused - Musculoskeletal Present: normal gait Urology Results - Labs 02/16/18 14:40 02/16/18 14:40 Abnormal lab results WBC 19.9 K/mcL (4.3-11.1) H 02/16/18 14:40 MCV 79.6 fL (83.0-100.0) L 02/16/18 14:40 MCH 27.2 pg (28.0-33.3) L 02/16/18 14:40 RDW 14.7 % (11.5-14.5) H 02/16/18 14:40 Neutrophils # 13.8 K/mcL (1.6-8.9) H 02/16/18 14:40 Lymphocytes # 4.7 K/mcL (0.6-4.6) H 02/16/18 14:40 Chloride 108 mEq/L (98-107) H 02/16/18 14:40 Carbon Dioxide 21 mEq/L (23-29) L 02/16/18 14:40 Glucose 119 mg/dL (70-105) H 02/16/18 14:40 All other labs normal.
[2018-02-16] MEDS: 0.9 % Sodium Chloride 1,000 ML IVC SCH (17:06)
[2018-02-16] MEDS: OXYCODONE Oral CONC 10 MG/0.5 ML ORAL.SYG SL PRN ×2 (17:07→21:31)
[2018-02-17] MEDS: OXYCODONE Oral CONC 10 MG/0.5 ML ORAL.SYG SL PRN ×4 (01:49→18:02)
[2018-02-17] MEDS: 0.9 % Sodium Chloride 1,000 ML IVC SCH (01:50)
[2018-02-17] MEDS ORDERED: cefTRIAXone 1,000 MG in Water for inj. (sterile) 20 ML 10 ML IVP SCH (09:00)
--- NOTE | 2018-02-17 09:36 | Anesthesia Evaluation PreOp ---
Date of Encounter: 02/17/18 Time of Encounter: 09:50 - Past History Planned Operation: ureteral stone extraction Cardiac History: Denies any Significant Hx Pulmonary History: Smoker [employer] History: Denies Any Significant HX Other Medical History: Denies Any Significant HX Anesthesia History: No Prior Anesthetic Complications Alcohol Use: none Drug use: none Medications and Allergies Etonogestrel [Nexplanon] 68 mg ID ONCE 02/16/18 [History] predniSONE [PredniSONE] 20 mg PO BID 02/16/18 [History] 3 Allergy/AdvReac Type Severity Reaction Status Date / Time nitrofurantoin Allergy Hives Verified 02/16/18 12:08 [From [employer]] - Meds/Allergy Pre-op Review Medications Reviewed: Yes Allergies Reviewed: Yes Beta Blockers on Current Med List: No Anesthesia Results - Labs 02/16/18 14:40 02/16/18 14:40 Anesthesia Exam Selected Entries 02/17/18 05:15 Temperature 97.8 F Pulse Rate 70 Respiratory Rate 15 Blood Pressure 108/67 O2 Sat by Pulse Oximetry 98 Weight: 88 kg NPO (# of Hours): over 8 hours - HEENT Pupil (Motor): Pupils equal Mallampati: II Teeth: Normal Oral Opening: Greater than 3 - Cardiac Rhythm: Regular Murmur: None - Pulmonary Breath Sounds: bilateral Clear Respiratory Effort: Symmetrical Anesthesia Assess/Plan ASA Score: 2 Modified [place] Scale for Level of Consciousness: Cooperative, oriented, and tranquil Anesthetic Plan: General Monitoring Plan: Standard Monitors Recovery Plan: PACU (Discussed GA, risks. Agreed to proceed.)
[2018-02-17] MEDS ORDERED: Acetaminophen IV 1,000 MG/100 ML INFUS..BTL IVPB ONE (09:37)
[2018-02-17] MEDS ORDERED: Scopolamine Patch 1.5 MG PATCH.TD72 TD ONE (09:37)
[2018-02-17] MEDS ORDERED: Albuterol 2.5 MG/3 ML NEBULIZER IH ONE (09:38)
[2018-02-17] MEDS ORDERED: Ringers Solution, Lactated 1,000 ML ONE (10:08)
[2018-02-17] MEDS ORDERED: Isovue-300 50 ML VIAL IVP ONE (10:09)
[2018-02-17] MEDS ORDERED: Dexamethasone 4 MG/ML VIAL IVP ONE (10:39)
[2018-02-17] MEDS ORDERED: *HR* Promethazine 25 MG/ML VIAL IVP PRN (10:39)
[2018-02-17] MEDS ORDERED: *HR* OxyCODONE Immed Rel 5 MG TABLET PO PRN (10:39)
[2018-02-17] MEDS ORDERED: MORPHINE SUL Oral CONC 10 MG/0.5 ML ORAL.SYG SL PRN (10:39)
[2018-02-17] MEDS ORDERED: *HR* Propofol 200 MG/20 ML VIAL IVP ONE (10:42)
[2018-02-17] MEDS ORDERED: Lidocaine -MPF 2% 2 ML VIAL ONE (10:42)
[2018-02-17] MEDS ORDERED: *HR* Midazolam HCl 2 MG/2 ML VIAL ONE (10:42)
[2018-02-17] MEDS ORDERED: Ketorolac 30 MG/ML VIAL ONE (10:42)
[2018-02-17] MEDS ORDERED: *HR* FentaNYL (PF) 100 MCG/2 ML VIAL ONE (10:42)
[2018-02-17] MEDS ORDERED: Ondansetron 4 MG/2 ML VIAL ONE (10:42)
--- NOTE | 2018-02-17 11:02 | Operative Note ---
Date of procedure: 02/17/18 Pre-op diagnosis: right distal ureteral stone Post-op diagnosis: same Procedure: cystoscopy removal of bladder calculi right retrograde pyelogram right JJ stent placement. Anesthesia: GETA Surgeon: Dell Milian Was there an branch assistant present: No Estimated blood loss (cc): 0 Specimen: stone Condition: stable Disposition: PACU Procedure in Detail: PROCEDURE IN DETAIL: Patient was taken back to the operating room, positioned supine on the operating table. Anesthesia was applied without complication. They were moved into dorsal lithotomy. Careful attention was maintained to cushion all pressure points for patient's safety. They were prepped and draped in sterile fashion. Time-out was performed with the proper patient and procedure. A 21-Bruneian rigid cystoscope was inserted into the bladder without difficulty. Systematic examination of bladder revealed the stone sitting in the dependent portion of the bladder next to a very edematous right ureteral orifice. I was able to extract the stone using a foreign body grasper. The ureteral orifice was then cannulated using a 5-Bruneian ureteral Catheter and a retrograde pyelogram was performed using Isovue. Significant hydroureter and hydronephrosis was seen and because of her white blood cell count and recent discomfort I elected to place a ureteral stent to allow for resolution of the ureteral edema which was likely present after passing such a large stone. A 4.8 x 26 ureteral stent was placed with the string attached. Bladder was drained. Stone was sent for analysis.
--- NOTE | 2018-02-17 11:36 | Anesthesia Evaluation Post Op ---
Date of Encounter: 02/17/18 Time of Encounter: 11:35 - Vital Signs Vital Signs: Vital Signs/O2 Sat, Most Current Temp Pulse Resp BP Pulse Ox 97.0 F L 62 16 112/68 97 02/17/18 11:04 02/17/18 11:26 02/17/18 11:26 02/17/18 11:26 02/17/18 11:26 - Lungs Lungs: Clear Ascult./Percussion - Airway Airway: Non-obstructed - Cardiovascular Regular Rate - Mental Status Mental Status: Alert & Oriented, Answers Appropriately - Pain Pain Scale: 0 - Nausea Vomiting Nausea Vomiting: Not Present - Hydration Hydration: NPO, Has not voided - Discharge PostOp Status: Transfer Patient to floor
[2018-02-17] MEDS ORDERED: Ondansetron 4 MG/2 ML VIAL IVP PRN (12:03)
[2018-02-17] MEDS ORDERED: *HR* Belladonna Alkaloids/Opium 30 MG RECTAL SUPPOSITORY RC PRN (12:03)
[2018-02-17] MEDS ORDERED: Naloxone 0.4 MG/ML INJ IVP PRN (12:03)
[2018-02-17] MEDS ORDERED: *HR* HYDROcodone/Acet 5/325 mg TABLET PO PRN (12:03)
[2018-02-17] MEDS ORDERED: Ketorolac 15 MG/ML VIAL IVP PRN (12:03)
[2018-02-17 15:24] VITALS: BP 110/72
--- NOTE | 2018-02-17 16:09 | Discharge Summary ---
<Navya Bonner N - Last Filed: 02/17/18 16:43> Orders not resulted at time of discharge: Pending orders 02/17/18 11:07 Calculi (stone) Analysis Routine Surgical Pathology [PTH] Routine Date of Encounter: 02/17/18 - Discharge Diagnosis (1) Ureteral stone Status: Acute - Hospital Course Hospital course: Ms. Otoole is a 27 year old female - Time Spent with Patient Total time spent providing and/or coordinating discharge services: Labs on day of discharge: Labs from last 24 hours 02/17/18 05:19 POC Glucose 113 H - Impressions ITS Impressions Retrograde Pyelogram 02/17/18 10:32 IMPRESSION: Intraprocedural fluoroscopic spot images as above. See separate procedure report for more information. D/ / Clarence Randall MD / Clarence Randall MD Interpreting Provider: Clarence Randall MD - Discharge Medications Prescriptions: HYDROcodone/Acet 5/325 mg [Valatie 5-325 mg] 1 tab PO Q4H PRN 5 Days #15 tablet PRN Reason: Moderate Pain Sulfamethoxazole/Trimeth DS [Bactrim DS] 1 each PO BID 3 Days #6 tablet Home Medications: Etonogestrel [Nexplanon] 68 mg ID ONCE 02/16/18 [History] predniSONE [PredniSONE] 20 mg PO BID 02/16/18 [History] HYDROcodone/Acet 5/325 mg [Valatie 5-325 mg] 1 tab PO Q4H PRN 5 Days #15 tablet [Rx] Sulfamethoxazole/Trimeth DS [Bactrim DS] 1 each PO BID 3 Days #6 tablet [Rx] Allergies/Adverse Reactions: 3 Allergy/AdvReac Type Severity Reaction Status Date / Time nitrofurantoin Allergy Hives Verified 02/16/18 12:08 [From Macrobid] Date of admission: 02/16/18 16:09 Primary care physician: PCP NONE Exam Initial Vital Signs Temp Pulse Resp BP Pulse Ox 97.9 F 76 18 141/94 99 02/16/18 12:06 02/16/18 12:06 02/16/18 12:06 02/16/18 12:06 02/16/18 12:06 - General physical appearance Present: well developed, no distress, no pain - Eyes Present: PERRL, normal ocular movement. Absent: icteric - Neck Present: no masses, trachea midline - Respiratory Present: normal respiratory effort - Abdomen Abdomen: Present: soft, non tender. Absent: distended - Integumentary Present: no rash, no abnormal pigmentation - Neurologic Present: normal coordination. Absent: disoriented, confused - Patient Status Disposition: Home, Self-Care Condition: Good Functional capacity at discharge: independent ambulation Overall status at discharge: patient is progressing back to baseline - Discharge Instructions Follow Up With: NONE,PCP [Primary Care Provider] - Dell Milian MD [Partnered Physician] - Forms: Work/School Release Additional Instructions: Patient can remove stent at home Friday (3 days) or come to Urology office Expect irritative urinary symptoms such as frequency, urgency, burning, and blood in the urine May use OTC AZO for irritative symptoms Call if temperature exceeds 101 degrees Call for post operative appointment in 2-4 weeks - Diet and Activity Activity: increase activity as tolerated, other (Patient may return to work Friday02/23/18 ) Diet: advance to your usual diet <Dell Milian - Last Filed: 02/17/18 17:21> Orders not resulted at time of discharge: Pending orders 02/17/18 11:07 Calculi (stone) Analysis Routine Surgical Pathology [PTH] Routine Date of Encounter: 02/17/18 Time of Encounter: 17:20 - Discharge Diagnosis (1) Leukocytosis Priority: Secondary Status: Resolved Qualifiers: Leukocytosis type: unspecified Qualified Code(s): D72.829 - Elevated white blood cell count, unspecified (2) Hydroureter on right Priority: Secondary Status: Resolved (3) Ureteral stone Priority: Primary Status: Resolved - Hospital Course Hospital course: Ms. Otoole is a 27 year old female - Time Spent with Patient Total time spent providing and/or coordinating discharge services: Labs on day of discharge: Labs from last 24 hours 02/17/18 05:19 POC Glucose 113 H - Impressions ITS Impressions Retrograde Pyelogram 02/17/18 10:32 IMPRESSION: Intraprocedural fluoroscopic spot images as above. See separate procedure report for more information. D/ / Clarence Randall MD / Clarence Randall MD Interpreting Provider: Clarence Randall MD Date of admission: 02/16/18 16:09 Primary care physician: PCP NONE Exam Initial Vital Signs Temp Pulse Resp BP Pulse Ox 97.9 F 76 18 141/94 99 02/16/18 12:06 02/16/18 12:06 02/16/18 12:06 02/16/18 12:06 02/16/18 12:06
[2018-02-17] MEDS ORDERED: predniSONE 20 MG TABLET PO SCH (17:00)
[2018-02-18] MEDS ORDERED: cefTRIAXone 1,000 MG in Water for inj. (sterile) 20 ML 10 ML IVP SCH (09:00)
== END 2018-02-17 18:06 | disposition home or self-care (01) ==
LOC: EMEROO 12:05 → 3ANU 12:05
PROVIDERS: ADMIT Urology; ATTEND Urology

== ENCOUNTER 2020-09-20 23:15 | Inpatient (IN) ==
[2020-09-21 00:26] LABS: Eosinophils % 1.5 %; Hematocrit 40.1 % (35.3-44.9); Hemoglobin 14.3 g/dL (11.5-15.4); Immature Granulocytes % 0.3 % (0-4); Lymphocytes % 28.2 %; Mean Corpuscular HGB Conc 35.7 g/dL (31.6-35.5); Mean Corpuscular Hemoglobin 29.4 pg (28.0-33.3); Mean Corpuscular Volume 82.5 fL (83.0-100.0); Mean Platelet Volume 10.4 fL (9.4-12.4); Monocytes % 6.2 %; Platelet Count 274 K/mcL (140-400); Red Blood Count 4.86 M/mcL (3.82-4.97); Red Cell Distribution Width 12.3 % (11.5-14.5); Segmented Neutrophils % 63.4 %; White Blood Count 14.1 K/mcL (4.3-11.1)
[2020-09-21 00:27] LABS: Basophils # 0.1 K/mcL (0.0-0.2); Basophils % 0.4 %; Eosinophils # 0.2 K/mcL (0.0-0.6); Monocytes # 0.9 K/mcL (0.0-1.3)
[2020-09-21 00:43] LABS: Acetaminophen < 10 mcg/mL (10-20); Alanine Aminotransferase 14 Units/L (7-52); Albumin 4.5 g/dL (3.5-5.7); Albumin/Globulin Ratio 1.6 (1.1-2.2); Alkaline Phosphatase 57 Units/L (34-104); Aspartate Amino Transferase 12 Units/L (13-39); BUN/Creatinine Ratio 10 (6-26); Bilirubin,Direct 0.1 mg/dL (0.0-0.2); Bilirubin,Indirect 0.5 mg/dL (0.0-1.0); Bilirubin,Total 0.6 mg/dL (0.3-1.0); Blood Urea Nitrogen 7 mg/dL (6-20); Calcium 9.3 mg/dL (8.6-10.3); Carbon Dioxide 24 mEq/L (23-29); Chloride 104 mEq/L (98-107); Ethanol < 10 mg/dL (Less than 10); Globulin 2.9 g/dL (2.4-3.5); Glucose 129 mg/dL (70-105); Lipase 16 Units/L (11-82); Osmolality,Calculated 282 (280-300); Potassium 3.3 mEq/L (3.5-5.1); Salicylate < 2.5 mg/dL (15.0-30.0); Sodium 136 mEq/L (136-145); Total Protein 7.4 g/dL (6.4-8.9); eGFR For African Americans > 60 (> 60); eGFR For Non-African Americans > 60 (> 60)
[2020-09-21 01:22] LABS: Bilirubin,Urine Negative (Negative); Blood,Urine Negative (Negative); Clarity,Urine Clear (Clear); Color,Urine Light-Yellow (Yellow); Glucose,Urine (UA) Normal (Normal); Ketones,Urine Negative (Negative); Leukocyte Esterase,Urine Negative (Negative); Nitrite,Urine Negative (Negative); PH,Urine 5.5 pH Units (5.0-8.0); Protein,Urine Negative (Neg-Trace); Specific Gravity,Urine 1.017 (1.010-1.025); Urobilinogen,Urine Normal (Normal)
[2020-09-21 01:35] LABS: Amphetamine Screen,Urine Positive ng/mL (Cutoff=1000); Barbiturate Screen,Urine Negative ng/mL (Cutoff=200); Benzodiazepines Screen,Urine Negative ng/mL (Cutoff=200); Cannabinoid Screen,Urine Negative ng/mL (Cutoff = 50); Cocaine Screen,Urine Negative ng/mL (Cutoff= 300); Opiate Screen,Urine Negative ng/mL (Cutoff=300); Phencyclidine Screen,Urine Negative ng/mL (Cutoff=25)
[2020-09-21] MEDS ORDERED: Haloperidol Lactate 5 MG/ML VIAL IM PRN (03:10)
[2020-09-21] MEDS ORDERED: *HR* LORazepam 1 MG TABLET PO PRN (03:10)
[2020-09-21] MEDS ORDERED: traZODone 50 MG TABLET PO PRN (03:10)
[2020-09-21] MEDS ORDERED: Acetaminophen 325 MG TABLET PO PRN (03:10)
[2020-09-21] MEDS ORDERED: MOM Conc 10 ML UD.LIQ PO PRN (03:10)
[2020-09-21] MEDS ORDERED: haloperidoL 5 MG TABLET PO PRN (03:10)
[2020-09-21] MEDS ORDERED: *HR* LORazepam 2 MG/ML VIAL IM PRN (03:10)
[2020-09-21] MEDS ORDERED: Mag Hydrox/Al Hydrox/Simeth 30 ML UDC PO PRN (03:10)
[2020-09-21] MEDS: hydrOXYzine pamoate 25 MG CAPSULE PO PRN ×2 (04:44→20:44)
[2020-09-21] MEDS: FLUoxetine 20 MG CAPSULE PO SCH (13:39)
[2020-09-22 08:55] VITALS: BP 100/70
[2020-09-22] MEDS: FLUoxetine 20 MG CAPSULE PO SCH (09:08)
== END 2020-09-22 12:50 | disposition home or self-care (01) | DRG 881 ==
LOC: EMEROOARM 23:15 → 1ANU 09-21 03:09
PROVIDERS: ADMIT Psychiatry & Neurology Psychiatry; ATTEND Psychiatry & Neurology Psychiatry